=== PATIENT | female | born 1975 | race Caucasian/White ===

== ENCOUNTER 2017-11-19 09:47 | Outpatient (CLI) | payer OTHER | END 2017-11-19 09:56 | disposition home or self-care (01) | LOC: MAMO-SONO 09:47 | DX: N64.59 Other signs and symptoms in breast (principal); N64.89 Other specified disorders of breast; Z12.31 Encounter for screening mammogram for malignant neoplasm of breast ==

== ENCOUNTER 2021-01-04 08:12 | Outpatient (CLI) | payer OTHER | END 2021-01-04 08:27 | disposition home or self-care (01) | LOC: MAMO-SONO 08:12 | PROVIDERS: ATTEND Obstetrics & Gynecology | DX: N60.11 Diffuse cystic mastopathy of right breast (principal); N60.12 Diffuse cystic mastopathy of left breast; N64.59 Other signs and symptoms in breast; Z12.31 Encounter for screening mammogram for malignant neoplasm of breast ==